=== PATIENT | male | born 1985 | race Caucasian/White ===

== ENCOUNTER 2024-11-19 07:47 | Day surgery (SDC) | payer MEDICAID ==
[~2024-11-19] VITALS: Ht 175.3 cm; Wt 106.8 kg
[~2024-11-19 07:47] MED LIST: 5HTP1CAP PO; ASHW300C2 PO; BERB500C PO; BLUE500T PO; CYAN-116 PO; GLUT1POW PO; INUL2TAB5 PO; LACT1CAP65 PO; MAGN100C6 PO; MILK1TAB PO; MULT-1085 PO; NIAC50TA PO; ONDA-243 PO; PANC1CAP PO; PANT-47 PO; PROC10TA97 PO; THEA100C PO; THIA50TA14 PO; TURM500T PO
[2024-11-19 08:14] VITALS: BP 125/89; PULSE 77; RESP 26; TEMP 97.4
[2024-11-19] MEDS ORDERED: fentaNYL/PF 50MCG/1 ML 2ML syringe ONE (09:10)
[2024-11-19] MEDS ORDERED: MIDAZolam 1 MG/ML 5ML VIAL ONE (09:10)
[2024-11-19] MEDS ORDERED: propofol inj 20 ML IV ONE (09:16)
[2024-11-19 09:54] VITALS: BP 106/77; PULSE 87; RESP 15; O2SAT 97
[2024-11-19 10:00] VITALS: BP 112/77; PULSE 83; RESP 14; O2SAT 99
[2024-11-19 10:10] VITALS: BP 115/79; PULSE 81; RESP 16; O2SAT 98
[2024-11-19 10:20] VITALS: BP 114/74; PULSE 70; RESP 16; O2SAT 96
[2024-11-19 10:31] VITALS: BP 120/76; PULSE 65; RESP 14; O2SAT 97
== END 2024-11-19 10:40 | disposition home or self-care (01) ==
LOC: GI LAB 07:47
PROVIDERS: ATTEND Internal Medicine Gastroenterology
DX: K92.1 Melena (principal); R19.4 Change in bowel habit; D12.5 Benign neoplasm of sigmoid colon; K57.30 Diverticulosis of large intestine without perforation or abscess without bleeding; R11.0 Nausea; K29.50 Unspecified chronic gastritis without bleeding; F10.11 Alcohol abuse, in remission; Z87.891 Personal history of nicotine dependence; Z95.818 Presence of other cardiac implants and grafts; Z98.890 Other specified postprocedural states; Z79.899 Other long term (current) drug therapy
CPT/HCPCS: 43239; 45385; J2250; J2704; J3010; J7030; Z7512; C1889